=== PATIENT | male | born 1965 | race Caucasian/White ===

== ENCOUNTER 2017-05-28 23:24 | Emergency (ER) | payer OTHER ==
[2017-05-28] MEDS ORDERED: TAMSULOSIN0.4 MG PO (23:57)
[2017-05-29] MEDS ORDERED: PERCOCET 5/325M1 TAB PO (00:37)
[2017-05-29 00:43] VITALS: BP 121/79
== END 2017-05-29 00:43 | disposition home or self-care (01) | DRG 563 ==
LOC: ED 23:24
PROC: 2W3DX1Z Immobilization of Left Lower Arm using Splint (ICD-10-PCS; principal; 2017-05-29)
DX: S52.502A Unspecified fracture of the lower end of left radius, initial encounter for closed fracture (principal); S52.612A Displaced fracture of left ulna styloid process, initial encounter for closed fracture; W18.30XA Fall on same level, unspecified, initial encounter; Y93.E1 Activity, personal bathing and showering; Y92.142 Bathroom in prison as the place of occurrence of the external cause